=== PATIENT | male | born 1955 | race Caucasian/White ===

== ENCOUNTER 2017-11-24 14:57 | Inpatient (IN) | payer SELFPAY ==
[~2017-11-24] VITALS: Ht 172.7 cm; Wt 70.3 kg
[2017-11-24] MEDS ORDERED: ONDANSETRON 4 MG/2 ML VIAL IV ONE (15:15)
[2017-11-24 15:18] LABS: BASOPHILS % (AUTO) 0.2 % (0.0-2.0); EOSINOPHILS % (AUTO) 0.2 % (0.0-7.0); HEMATOCRIT 52.4 % (36.7-47.1); HEMOGLOBIN 17.6 g/dL (12.5-16.3); LYMPHOCYTES # (AUTO) 1.5 K/uL (20.0-40.0); LYMPHOCYTES % (AUTO) 11.9 % (20.5-51.5); MEAN CORPUSCULAR HEMOGLOBIN 31.1 uug (23.8-33.4); MEAN CORPUSCULAR HGB CONC 34 g/dL (32.5-36.3); MEAN CORPUSCULAR VOLUME 92.5 fL (73.0-96.2); MONOCYTES # (AUTO) 0.9 K/uL (2.0-10.0); MONOCYTES % (AUTO) 7.6 % (0.0-11.0); NEUTROPHILS # (AUTO) 9.8 K/uL (1.8-8.9); NEUTROPHILS % (AUTO) 80.1 % (38.5-71.5); PLATELET COUNT (AUTO) 270 K/uL (152-348); RED BLOOD CELL COUNT(AUTO) 5.66 MIL/uL (4.06-5.63); WHITE BLOOD COUNT (AUTO) 12.2 K/uL (3.6-10.2)
[2017-11-24] MEDS ORDERED: SWABABLE VALVE TRANSFER SET EA MC ONE (15:20)
[2017-11-24] MEDS ORDERED: IOHEXOL 300MG/ML 100 ML INFUS..BTL ONE (15:21)
[2017-11-24] MEDS ORDERED: IV NORMAL SALINE 250 ML IV ONE (15:21)
[2017-11-24] MEDS ORDERED: ONDANSETRON 4 MG/2 ML VIAL ONE (15:30)
[2017-11-24] MEDS ORDERED: DIATR MEGLU/DIATRIZOATE SODIUM 120 ML BOTTLE ONE (15:30)
[2017-11-24 15:33] LABS: CREATININE 1.3 mg/dL (0.6-1.3); POTASSIUM 4.2 mmol/L (3.5-5.1)
[2017-11-24 15:36] LABS: MAGNESIUM 2.2 mg/dL (1.8-2.4); PHOSPHOROUS 3.9 mg/dL (2.5-4.9)
[2017-11-24 15:38] LABS: BILIRUBIN,DIRECT 0.3 mg/dL (0.0-0.2); BILIRUBIN,TOTAL 1.3 mg/dL (0.2-1.0); TOTAL PROTEIN, SERUM 8.2 g/dL (6.4-8.2)
[2017-11-24] MEDS ORDERED: IV NORMAL SALINE 1000 ML BAG IV ONE (15:45)
[2017-11-24 18:23] VITALS: BP 127/77
[2017-11-24 20:00] VITALS: BP 124/84
[2017-11-24] MEDS ORDERED: HYDROMORPHONE 1 MG/1 ML DISP.SYRIN IV PRN (20:15)
[2017-11-24] MEDS ORDERED: ACETAMINOPHEN 650 MG SUPP.RECT RC PRN (20:15)
[2017-11-24] MEDS ORDERED: FLEET ENEMA 133 ML BOTTLE RC ONE (20:15)
[2017-11-24] MEDS ORDERED: ONDANSETRON 4 MG/2 ML VIAL IV PRN (20:15)
[2017-11-24] MEDS ORDERED: IV LACTATED RINGERS SOLUTION 1,000 ML BAG IV PRN (20:15)
[2017-11-24] MEDS: IV D5 1/2 NS 1000 ML 1,000 ML IV PRN (20:57)
[2017-11-24] MEDS ORDERED: PANTOPRAZOLE SODIUM 40 MG VIAL IV SCH (21:00)
[2017-11-24] MEDS: HYDROMORPHONE 2 MG/1 ML DISP.SYRIN IV PRN (21:12)
[2017-11-24] MEDS: ONDANSETRON 4 MG/2 ML VIAL IV PRN (21:16)
[2017-11-25 04:00] VITALS: BP 123/77
[2017-11-25 06:55] LABS: BASOPHILS # (AUTO) 0.1 K/uL (0.0-8.0); BASOPHILS % (AUTO) 0.6 % (0.0-2.0); EOSINOPHILS % (AUTO) 0.4 % (0.0-7.0); HEMATOCRIT 47.7 % (36.7-47.1); LYMPHOCYTES # (AUTO) 1.5 K/uL (20.0-40.0); LYMPHOCYTES % (AUTO) 14.8 % (20.5-51.5); MEAN CORPUSCULAR HEMOGLOBIN 30.9 uug (23.8-33.4); MEAN CORPUSCULAR HGB CONC 34 g/dL (32.5-36.3); MEAN CORPUSCULAR VOLUME 91.8 fL (73.0-96.2); MONOCYTES # (AUTO) 0.8 K/uL (2.0-10.0); MONOCYTES % (AUTO) 8.4 % (0.0-11.0); NEUTROPHILS # (AUTO) 7.6 K/uL (1.8-8.9); NEUTROPHILS % (AUTO) 75.8 % (38.5-71.5); PLATELET COUNT (AUTO) 226 K/uL (152-348); RED BLOOD CELL COUNT(AUTO) 5.19 MIL/uL (4.06-5.63)
[2017-11-25] MEDS ORDERED: MAGNESIUM CITRATE 296 ML BOTTLE PO ONE (07:00)
[2017-11-25 07:04] LABS: *BILIRUBIN,URIN NEGATIVE (NEGATIVE); *BLOOD, URINE NEGATIVE (NEGATIVE); *CLARITY,URINE CLEAR (CLEAR); *COLOR,URINE YELLOW (YELLOW); *KETONES,URINE 1+ (NEGATIVE); *PROTEIN,URINE 1+ (NEGATIVE); LEUKOCYTE ESTERASE ,URINE NEGATIVE (NEGATIVE); NITRITE, URINE NEGATIVE (NEGATIVE); UGLUCOSE NEGATIVE (NEGATIVE)
[2017-11-25 07:11] LABS: PHOSPHOROUS 4.2 mg/dL (2.5-4.9); POTASSIUM 3.8 mmol/L (3.5-5.1)
[2017-11-25 07:15] LABS: BACTERIA,URINE FEW /HPF (NONE SEEN); RBC,URINE NONE SEEN /HPF (0-3); SQUAMOUS EPITHELIAL CELL,UR FEW /HPF (NONE SEEN); WBC,URINE 0-3 /HPF (0-3)
[2017-11-25 08:00] VITALS: BP 107/55
[2017-11-25] MEDS ORDERED: GOLYTELY 4000 ML BOTTLE PO ONE (08:00)
[2017-11-25] MEDS ORDERED: FLEET ENEMA 133 ML BOTTLE RC ONE (08:00)
[2017-11-25] MEDS ORDERED: PANTOPRAZOLE SODIUM 40 MG VIAL IV SCH (09:00)
[2017-11-25] MEDS: IV D5 1/2 NS 1000 ML 1,000 ML IV PRN (09:08)
[2017-11-25] MEDS: ONDANSETRON 4 MG/2 ML VIAL IV PRN (11:09)
[2017-11-25] MEDS: HYDROMORPHONE 2 MG/1 ML DISP.SYRIN IV PRN ×2 (11:14→18:19)
[2017-11-25 11:49] VITALS: BP 132/88
[2017-11-25 15:09] VITALS: BP 126/83
[2017-11-25] MEDS: FLEET ENEMA 133 ML BOTTLE RC SCH ×3 (17:26→21:06)
[2017-11-25 20:00] VITALS: BP 131/84
[2017-11-25 20:44] LABS: BASOPHILS % (AUTO) 0.2 % (0.0-2.0); EOSINOPHILS % (AUTO) 0.1 % (0.0-7.0); HEMATOCRIT 47.4 % (36.7-47.1); HEMOGLOBIN 16.1 g/dL (12.5-16.3); LYMPHOCYTES # (AUTO) 1.1 K/uL (20.0-40.0); LYMPHOCYTES % (AUTO) 10.3 % (20.5-51.5); MEAN CORPUSCULAR HEMOGLOBIN 31.3 uug (23.8-33.4); MEAN CORPUSCULAR HGB CONC 34 g/dL (32.5-36.3); MEAN CORPUSCULAR VOLUME 92.4 fL (73.0-96.2); MONOCYTES # (AUTO) 0.8 K/uL (2.0-10.0); MONOCYTES % (AUTO) 8.1 % (0.0-11.0); NEUTROPHILS # (AUTO) 8.3 K/uL (1.8-8.9); NEUTROPHILS % (AUTO) 81.3 % (38.5-71.5); PLATELET COUNT (AUTO) 234 K/uL (152-348); RED BLOOD CELL COUNT(AUTO) 5.13 MIL/uL (4.06-5.63); WHITE BLOOD COUNT (AUTO) 10.2 K/uL (3.6-10.2)
[2017-11-25 20:55] LABS: BILIRUBIN,DIRECT 0.1 mg/dL (0.0-0.2); BILIRUBIN,TOTAL 0.8 mg/dL (0.2-1.0); CREATININE 1.1 mg/dL (0.6-1.3); POTASSIUM 3.5 mmol/L (3.5-5.1); TOTAL PROTEIN, SERUM 6.9 g/dL (6.4-8.2)
[2017-11-25 21:41] LABS: *OCCULT BLOOD STOOL POSITIVE (NEGATIVE)
[2017-11-26] VITALS (7 sets, daily range): BP systolic 104–124; BP diastolic 67–84
[2017-11-26] MEDS: HYDROMORPHONE 2 MG/1 ML DISP.SYRIN IV PRN ×4 (00:45→22:11)
[2017-11-26] MEDS: IV D5 1/2 NS 1000 ML 1,000 ML IV PRN (04:18)
[2017-11-26] MEDS ORDERED: FLEET ENEMA 133 ML BOTTLE RC ONE ×3 (05:16→06:30)
[2017-11-26] MEDS ORDERED: LIDOCAINE HCL 1% 20 ML VIAL ONE (07:01)
[2017-11-26] MEDS ORDERED: LIDOCAINE 1%-EPI 1:100,000 20 ML VIAL ONE (07:02)
[2017-11-26] MEDS ORDERED: EPINEPHRINE 1 MG/1 ML AMP ONE (07:02)
[2017-11-26] MEDS ORDERED: BACITRACIN ZINC OINT 15 GM TUBE ONE (07:03)
[2017-11-26] MEDS ORDERED: BACITRACIN 50,000 UNITS VIAL ONE (07:03)
[2017-11-26] MEDS ORDERED: ROCURONIUM BROMIDE 50 MG/5 ML VIAL ONE ×2 (07:36)
[2017-11-26] MEDS ORDERED: SUCCINYLCHOLINE CHLORIDE 200 MG/10 ML VIAL ONE (07:36)
[2017-11-26] MEDS ORDERED: FENTANYL CITRATE 100 MCG/2 ML AMPUL ONE (07:36)
[2017-11-26] MEDS ORDERED: BUPIVACAINE/EPI PF 0.25% 30 ML VIAL ONE (07:55)
[2017-11-26] MEDS ORDERED: LEVOFLOXACIN 500 MG/D5W 500 MG in PREMIXED 1 EACH IV ONE (08:00)
[2017-11-26] MEDS ORDERED: METRONIDAZOLE 500 MG/NS 100ML 500 MG in PREMIXED 1 EACH IV ONE (08:00)
[2017-11-26] MEDS ORDERED: PROPOFOL 200 MG/20 ML BOTTLE IV ONE (08:01)
[2017-11-26] MEDS ORDERED: IV NORMAL SALINE 1000 ML BAG IV ONE (08:01)
[2017-11-26] MEDS ORDERED: LIDOCAINE-MPF 2% 5 ML VIAL MC ONE (08:01)
[2017-11-26] MEDS ORDERED: DEXAMETHASONE SOD PHOSPHATE 4 MG INJ IV ONE (08:01)
[2017-11-26] MEDS ORDERED: KETOROLAC TROMETHAMINE 30 MG INJ IM ONE (08:07)
[2017-11-26] MEDS ORDERED: DESFLURANE ANESTHESIA GAS 240 ML BOTTLE ONE (08:47)
[2017-11-26] MEDS ORDERED: SEVOFLURANE 250 ML BOTTLE ONE (08:47)
[2017-11-26] MEDS ORDERED: ONDANSETRON 4 MG/2 ML VIAL IV PRN ×2 (14:00→17:00)
[2017-11-26] MEDS: METRONIDAZOLE 500 MG/NS 100ML 500 MG in PREMIXED 1 EACH IV SCH (17:18)
[2017-11-26] MEDS: IV NS 1000 ML 1,000 ML IV PRN (17:20)
[2017-11-26] MEDS: PANTOPRAZOLE SODIUM 40 MG VIAL IV SCH (20:31)
[2017-11-26] MEDS: SUCRALFATE 1 G/10 ML LIQUID UDC PO SCH (20:31)
[2017-11-27] VITALS (11 sets, daily range): BP systolic 88–112; BP diastolic 55–73
[2017-11-27] MEDS: SUCRALFATE 1 G/10 ML LIQUID UDC PO SCH ×5 (00:03→20:47)
[2017-11-27] MEDS: IV NS 1000 ML 1,000 ML IV PRN (00:03)
[2017-11-27] MEDS ORDERED: METRONIDAZOLE 500 MG/NS 100ML 100 ML IV ONE (00:44)
[2017-11-27] MEDS: METRONIDAZOLE 500 MG/NS 100ML 500 MG in PREMIXED 1 EACH IV SCH (00:46)
[2017-11-27] MEDS: HYDROMORPHONE 2 MG/1 ML DISP.SYRIN IV PRN ×3 (02:09→17:45)
[2017-11-27] MEDS ORDERED: GABAPENTIN 300 MG CAPSULE PO SCH (05:00)
[2017-11-27] MEDS ORDERED: IBUPROFEN 800 MG TABLET PO SCH ×2 (05:00→07:30)
[2017-11-27] MEDS ORDERED: IV NORMAL SALINE 500 ML IV ONE (05:00)
[2017-11-27] MEDS: ACETAMINOPHEN 325 MG TABLET PO SCH ×3 (05:20→20:47)
[2017-11-27] MEDS: IV LACTATED RINGERS SOLUTION 1,000 ML IV SCH ×2 (06:17→12:41)
[2017-11-27 06:38] LABS: BASOPHILS % (AUTO) 0.1 % (0.0-2.0); HEMATOCRIT 45.6 % (36.7-47.1); HEMOGLOBIN 15.2 g/dL (12.5-16.3); LYMPHOCYTES # (AUTO) 0.7 K/uL (20.0-40.0); LYMPHOCYTES % (AUTO) 5.3 % (20.5-51.5); MEAN CORPUSCULAR HEMOGLOBIN 31.6 uug (23.8-33.4); MEAN CORPUSCULAR HGB CONC 33 g/dL (32.5-36.3); MEAN CORPUSCULAR VOLUME 94.8 fL (73.0-96.2); MONOCYTES # (AUTO) 0.6 K/uL (2.0-10.0); MONOCYTES % (AUTO) 4.7 % (0.0-11.0); NEUTROPHILS # (AUTO) 11.3 K/uL (1.8-8.9); NEUTROPHILS % (AUTO) 89.9 % (38.5-71.5); PLATELET COUNT (AUTO) 199 K/uL (152-348); RED BLOOD CELL COUNT(AUTO) 4.81 MIL/uL (4.06-5.63); WHITE BLOOD COUNT (AUTO) 12.6 K/uL (3.6-10.2)
[2017-11-27 06:55] LABS: BILIRUBIN,TOTAL 1.1 mg/dL (0.2-1.0); CREATININE 1.5 mg/dL (0.6-1.3); MAGNESIUM 2.1 mg/dL (1.8-2.4); POTASSIUM 4.7 mmol/L (3.5-5.1); TOTAL PROTEIN, SERUM 5.2 g/dL (6.4-8.2)
[2017-11-27] MEDS ORDERED: LEVOFLOXACIN 500 MG/D5W 500 MG in PREMIXED 1 EACH IV SCH (09:00)
[2017-11-27] MEDS: PANTOPRAZOLE SODIUM 40 MG VIAL IV SCH ×2 (09:03→20:47)
[2017-11-27] MEDS ORDERED: AMIODARONE HCL IV 150 MG in IV DEXTROSE 5% 100 ML IV ONE (11:45)
[2017-11-27] MEDS: AMIODARONE HCL IV 900 MG in IV DEXTROSE 5% 482 ML IV PRN ×2 (12:52→19:01)
[2017-11-27] MEDS: PIPERACILLIN/TAZOBACTAM/D5W 50 ML IV SCH ×3 (12:54→23:34)
[2017-11-27] MEDS: GABAPENTIN 300 MG CAPSULE PO SCH ×2 (13:31→21:18)
[2017-11-27] MEDS: IBUPROFEN 800 MG TABLET PO SCH ×2 (13:31→21:18)
[2017-11-27] MEDS ORDERED: IV LACTATED RINGERS SOLUTION 1,000 ML IV SCH (16:00)
[2017-11-27] MEDS: DIGOXIN 500 MCG/2 ML AMP IV SCH ×2 (16:18→20:47)
[2017-11-27] MEDS ORDERED: SUCRALFATE 1 G/10 ML LIQUID UDC PO SCH ×2 (19:30)
[2017-11-27] MEDS ORDERED: IV LACTATED RINGERS SOLUTION 1,000 ML IV PRN (20:45)
[2017-11-27] MEDS ORDERED: FUROSEMIDE 20 MG/2 ML VIAL IV ONE (22:30)
[2017-11-28] VITALS: BP 92/53
[2017-11-28] MEDS: IV 1/2NS 1000 ML 1,000 ML IV PRN ×3 (00:13→13:32)
[2017-11-28 04:00] VITALS: BP 89/50
[2017-11-28] MEDS: GABAPENTIN 300 MG CAPSULE PO SCH ×3 (05:20→22:09)
[2017-11-28] MEDS: IBUPROFEN 800 MG TABLET PO SCH ×3 (05:20→22:09)
[2017-11-28] MEDS: ACETAMINOPHEN 325 MG TABLET PO SCH ×3 (05:20→21:02)
[2017-11-28] MEDS: PIPERACILLIN/TAZOBACTAM/D5W 50 ML IV SCH (05:21)
[2017-11-28 06:26] LABS: BASOPHILS % (AUTO) 0.2 % (0.0-2.0); EOSINOPHILS # (AUTO) 0.1 K/uL (0.0-0.7); EOSINOPHILS % (AUTO) 0.9 % (0.0-7.0); HEMATOCRIT 41.1 % (36.7-47.1); HEMOGLOBIN 14.1 g/dL (12.5-16.3); LYMPHOCYTES # (AUTO) 0.6 K/uL (20.0-40.0); LYMPHOCYTES % (AUTO) 7.9 % (20.5-51.5); MEAN CORPUSCULAR HEMOGLOBIN 31.8 uug (23.8-33.4); MEAN CORPUSCULAR HGB CONC 34 g/dL (32.5-36.3); MEAN CORPUSCULAR VOLUME 92.9 fL (73.0-96.2); MONOCYTES # (AUTO) 0.4 K/uL (2.0-10.0); MONOCYTES % (AUTO) 4.4 % (0.0-11.0); NEUTROPHILS # (AUTO) 7.1 K/uL (1.8-8.9); NEUTROPHILS % (AUTO) 86.6 % (38.5-71.5); PLATELET COUNT (AUTO) 158 K/uL (152-348); RED BLOOD CELL COUNT(AUTO) 4.42 MIL/uL (4.06-5.63); WHITE BLOOD COUNT (AUTO) 8.2 K/uL (3.6-10.2)
[2017-11-28 06:35] LABS: CREATININE 1.4 mg/dL (0.6-1.3); MAGNESIUM 1.8 mg/dL (1.8-2.4); PHOSPHOROUS 1.9 mg/dL (2.5-4.9); POTASSIUM 3.8 mmol/L (3.5-5.1)
[2017-11-28 07:44] VITALS: BP 92/50
[2017-11-28] MEDS: SUCRALFATE 1 G/10 ML LIQUID UDC PO SCH ×4 (08:04→20:58)
[2017-11-28] MEDS: PANTOPRAZOLE SODIUM 40 MG VIAL IV SCH ×2 (08:04→20:58)
[2017-11-28] MEDS ORDERED: diphenhydrAMINE 50 MG CAPSULE PO PRN (10:45)
[2017-11-28 11:45] VITALS: BP 90/55
[2017-11-28] MEDS ORDERED: MAGNESIUM SULFATE/D5W 100 ML IV SCH (13:30)
[2017-11-28] MEDS ORDERED: DOSING BY PHARMACY-MD TO SPECIFY MED/ROUTE XX PRN (14:15)
[2017-11-28] MEDS ORDERED: MEROPENEM 1 G in IV NORMAL SALINE 100 ML IV SCH (15:00)
[2017-11-28] MEDS: MEROPENEM 1 G in IV NORMAL SALINE 100 ML IV SCH ×2 (15:03→22:09)
[2017-11-28 15:07] VITALS: BP 92/59
[2017-11-28] MEDS ORDERED: NEUTRA PHOS PACKET PO ONE (15:15)
[2017-11-28 20:00] VITALS: BP 95/59
[2017-11-28] MEDS: AMIODARONE HCL 200 MG TABLET PO SCH (21:01)
[2017-11-29] VITALS: BP 95/62
[2017-11-29] MEDS: FUROSEMIDE 20 MG/2 ML VIAL IV SCH ×2 (00:10→08:06)
[2017-11-29 04:00] VITALS: BP 86/42
[2017-11-29] MEDS: IBUPROFEN 800 MG TABLET PO SCH (05:25)
[2017-11-29] MEDS: GABAPENTIN 300 MG CAPSULE PO SCH ×3 (05:25→21:40)
[2017-11-29] MEDS: ACETAMINOPHEN 325 MG TABLET PO SCH ×3 (05:25→21:40)
[2017-11-29] MEDS: MEROPENEM 1 G in IV NORMAL SALINE 100 ML IV SCH ×3 (06:07→23:18)
[2017-11-29 06:31] LABS: BASOPHILS % (AUTO) 0.2 % (0.0-2.0); EOSINOPHILS # (AUTO) 0.2 K/uL (0.0-0.7); EOSINOPHILS % (AUTO) 1.9 % (0.0-7.0); HEMATOCRIT 37.9 % (36.7-47.1); LYMPHOCYTES # (AUTO) 0.4 K/uL (20.0-40.0); MEAN CORPUSCULAR HEMOGLOBIN 31.7 uug (23.8-33.4); MEAN CORPUSCULAR HGB CONC 34 g/dL (32.5-36.3); MEAN CORPUSCULAR VOLUME 92.6 fL (73.0-96.2); MONOCYTES # (AUTO) 0.4 K/uL (2.0-10.0); MONOCYTES % (AUTO) 3.5 % (0.0-11.0); NEUTROPHILS # (AUTO) 11.3 K/uL (1.8-8.9); NEUTROPHILS % (AUTO) 91.4 % (38.5-71.5); PLATELET COUNT (AUTO) 143 K/uL (152-348); RED BLOOD CELL COUNT(AUTO) 4.09 MIL/uL (4.06-5.63); WHITE BLOOD COUNT (AUTO) 12.3 K/uL (3.6-10.2)
[2017-11-29] MEDS: SUCRALFATE 1 G/10 ML LIQUID UDC PO SCH ×4 (06:38→21:39)
[2017-11-29 06:49] LABS: BILIRUBIN,TOTAL 0.4 mg/dL (0.2-1.0); CREATININE 1.4 mg/dL (0.6-1.3); MAGNESIUM 1.9 mg/dL (1.8-2.4); PHOSPHOROUS 1.3 mg/dL (2.5-4.9); TOTAL PROTEIN, SERUM 4.2 g/dL (6.4-8.2)
[2017-11-29] MEDS: PANTOPRAZOLE SODIUM 40 MG VIAL IV SCH ×2 (08:05→21:40)
[2017-11-29] MEDS: AMIODARONE HCL 200 MG TABLET PO SCH ×2 (08:06→21:40)
[2017-11-29] MEDS ORDERED: FUROSEMIDE 20 MG/2 ML VIAL IV ONE (11:30)
[2017-11-29] MEDS ORDERED: ALBUMIN HUMAN 25% 100 ML IV ONE (11:30)
[2017-11-29 11:43] VITALS: BP 90/62
[2017-11-29] MEDS: POTASSIUM PHOSPHATE MM 5 MMOL in IV DEXTROSE 5% 100 ML IV SCH ×4 (13:32→21:39)
[2017-11-29] MEDS: POTASSIUM CHLORIDE 20 MEQ in IV D5/ 0.9% NACL 1,000 ML IV PRN (13:50)
[2017-11-29 15:17] VITALS: BP 100/59
[2017-11-29 20:00] VITALS: BP 106/63
[2017-11-29] MEDS ORDERED: MAGNESIUM SULFATE/D5W 100 ML IV ONE (21:30)
[2017-11-30] VITALS: BP 116/66
[2017-11-30 04:00] VITALS: BP 101/67
[2017-11-30 06:05] LABS: *CLARITY,URINE CLEAR (CLEAR); *COLOR,URINE DARK YELLOW (YELLOW); *PROTEIN,URINE NEGATIVE (NEGATIVE); UGLUCOSE NEGATIVE (NEGATIVE)
[2017-11-30 06:06] LABS: *BILIRUBIN,URIN NEGATIVE (NEGATIVE); *KETONES,URINE NEGATIVE (NEGATIVE); *UROBILINOGEN,URINE 0.2 E.U./dl (NORMAL); NITRITE, URINE NEGATIVE (NEGATIVE)
[2017-11-30 06:07] LABS: *BLOOD, URINE TRACE (NEGATIVE)
[2017-11-30 06:16] LABS: LEUKOCYTE ESTERASE ,URINE TRACE (NEGATIVE)
[2017-11-30 06:17] LABS: BACTERIA,URINE NONE SEEN /HPF (NONE SEEN); MUCUS,URINE MANY /LPF (0-FEW); SQUAMOUS EPITHELIAL CELL,UR FEW /HPF (NONE SEEN)
[2017-11-30] MEDS: ACETAMINOPHEN 325 MG TABLET PO SCH ×3 (06:39→20:31)
[2017-11-30] MEDS: MEROPENEM 1 G in IV NORMAL SALINE 100 ML IV SCH ×3 (06:39→22:25)
[2017-11-30] MEDS: SUCRALFATE 1 G/10 ML LIQUID UDC PO SCH ×4 (06:39→20:32)
[2017-11-30] MEDS: GABAPENTIN 300 MG CAPSULE PO SCH ×3 (06:39→22:25)
[2017-11-30 08:12] LABS: BASOPHILS % (AUTO) 0.2 % (0.0-2.0); EOSINOPHILS # (AUTO) 0.2 K/uL (0.0-0.7); EOSINOPHILS % (AUTO) 1.8 % (0.0-7.0); HEMOGLOBIN 12.3 g/dL (12.5-16.3); LYMPHOCYTES # (AUTO) 0.5 K/uL (20.0-40.0); LYMPHOCYTES % (AUTO) 4.1 % (20.5-51.5); MEAN CORPUSCULAR HEMOGLOBIN 32.1 uug (23.8-33.4); MEAN CORPUSCULAR HGB CONC 35 g/dL (32.5-36.3); MEAN CORPUSCULAR VOLUME 91.6 fL (73.0-96.2); MONOCYTES # (AUTO) 0.7 K/uL (2.0-10.0); MONOCYTES % (AUTO) 5.4 % (0.0-11.0); NEUTROPHILS # (AUTO) 11.5 K/uL (1.8-8.9); NEUTROPHILS % (AUTO) 88.5 % (38.5-71.5); RED BLOOD CELL COUNT(AUTO) 3.82 MIL/uL (4.06-5.63)
[2017-11-30 08:30] LABS: PLATELET COUNT (AUTO) 188 K/uL (152-348)
[2017-11-30] MEDS: PANTOPRAZOLE SODIUM 40 MG VIAL IV SCH ×2 (08:35→20:32)
[2017-11-30] MEDS: AMIODARONE HCL 200 MG TABLET PO SCH ×2 (08:36→20:32)
[2017-11-30 08:51] LABS: BILIRUBIN,TOTAL 0.6 mg/dL (0.2-1.0); CREATININE 1.1 mg/dL (0.6-1.3); PHOSPHOROUS 1.4 mg/dL (2.5-4.9); POTASSIUM 2.9 mmol/L (3.5-5.1); TOTAL PROTEIN, SERUM 4.9 g/dL (6.4-8.2)
[2017-11-30] MEDS ORDERED: POTASSIUM CHLORIDE 20 MEQ TAB.PRT.SR PO ONE (10:15)
[2017-11-30] MEDS ORDERED: FUROSEMIDE 20 MG/2 ML VIAL IV ONE (10:45)
[2017-11-30] MEDS: POTASSIUM PHOSPHATE MM 5 MMOL in IV DEXTROSE 5% 100 ML IV SCH ×4 (11:10→18:23)
[2017-11-30] MEDS: PROTEIN SUPPLEMENT (PROSTAT) 30 ML LIQUID PO SCH ×2 (11:11→17:10)
[2017-11-30 11:36] VITALS: BP 117/69
[2017-11-30 15:11] VITALS: BP 108/64
[2017-11-30] MEDS: POTASSIUM CHLORIDE 20 MEQ in IV D5/ 0.9% NACL 1,000 ML IV PRN (16:53)
[2017-11-30 20:03] VITALS: BP 119/71
[2017-12-01 00:31] VITALS: BP 99/57
[2017-12-01 04:15] VITALS: BP 125/66
[2017-12-01] MEDS: MEROPENEM 1 G in IV NORMAL SALINE 100 ML IV SCH ×2 (06:05→15:00)
[2017-12-01] MEDS: ACETAMINOPHEN 325 MG TABLET PO SCH ×2 (06:05→12:03)
[2017-12-01] MEDS: GABAPENTIN 300 MG CAPSULE PO SCH ×2 (06:06→13:34)
[2017-12-01 06:22] LABS: BASOPHILS % (AUTO) 0.2 % (0.0-2.0); EOSINOPHILS # (AUTO) 0.3 K/uL (0.0-0.7); EOSINOPHILS % (AUTO) 2.7 % (0.0-7.0); HEMATOCRIT 36.7 % (36.7-47.1); HEMOGLOBIN 12.7 g/dL (12.5-16.3); LYMPHOCYTES # (AUTO) 0.7 K/uL (20.0-40.0); LYMPHOCYTES % (AUTO) 7.2 % (20.5-51.5); MEAN CORPUSCULAR HEMOGLOBIN 31.3 uug (23.8-33.4); MEAN CORPUSCULAR HGB CONC 35 g/dL (32.5-36.3); MEAN CORPUSCULAR VOLUME 90.6 fL (73.0-96.2); MONOCYTES # (AUTO) 0.8 K/uL (2.0-10.0); MONOCYTES % (AUTO) 7.7 % (0.0-11.0); NEUTROPHILS # (AUTO) 8.4 K/uL (1.8-8.9); NEUTROPHILS % (AUTO) 82.2 % (38.5-71.5); PLATELET COUNT (AUTO) 213 K/uL (152-348); RED BLOOD CELL COUNT(AUTO) 4.05 MIL/uL (4.06-5.63); WHITE BLOOD COUNT (AUTO) 10.2 K/uL (3.6-10.2)
[2017-12-01 06:29] LABS: BILIRUBIN,TOTAL 0.6 mg/dL (0.2-1.0); MAGNESIUM 1.7 mg/dL (1.8-2.4); PHOSPHOROUS 1.9 mg/dL (2.5-4.9); POTASSIUM 3.2 mmol/L (3.5-5.1); TOTAL PROTEIN, SERUM 5.2 g/dL (6.4-8.2)
[2017-12-01] MEDS: SUCRALFATE 1 G/10 ML LIQUID UDC PO SCH ×3 (06:32→16:50)
[2017-12-01] MEDS: PROTEIN SUPPLEMENT (PROSTAT) 30 ML LIQUID PO SCH ×3 (08:12→16:50)
[2017-12-01] MEDS: PANTOPRAZOLE SODIUM 40 MG VIAL IV SCH (08:38)
[2017-12-01] MEDS: AMIODARONE HCL 200 MG TABLET PO SCH (08:38)
[2017-12-01 11:38] VITALS: BP 114/75
[2017-12-01] MEDS ORDERED: MAGNESIUM OXIDE 400 MG TABLET PO ONE (12:15)
[2017-12-01] MEDS ORDERED: POTASSIUM CHLORIDE 20 MEQ TAB.PRT.SR PO ONE (13:00)
[2017-12-01] MEDS ORDERED: NEUTRA PHOS PACKET PO ONE (13:00)
[2017-12-01 16:07] VITALS: BP 124/73
[2017-12-01] MEDS ORDERED: AMIODARONE HCL 200 MG TABLET PO SCH (21:00)
== END 2017-12-01 18:24 | disposition home or self-care (01) | DRG 329 ==
LOC: ER 14:58 → MED 17:31 → TELE-TD 11-26 14:07 → MED 11-28 17:25 → TELE 11-28 19:45 → MED 12-01 14:20
PROVIDERS: ADMIT Internal Medicine; ATTEND Internal Medicine
PROC: 0DB68ZX Excision of Stomach, Via Natural or Artificial Opening Endoscopic, Diagnostic (ICD-10-PCS; principal; 2017-11-26 07:46)
PROC: 0DJD8ZZ Inspection of Lower Intestinal Tract, Via Natural or Artificial Opening Endoscopic (ICD-10-PCS; principal; 2017-11-26 07:46)
PROC: 0DB38ZX Excision of Lower Esophagus, Via Natural or Artificial Opening Endoscopic, Diagnostic (ICD-10-PCS; principal; 2017-11-26 07:46)
PROC: 0FBG0ZX Excision of Pancreas, Open Approach, Diagnostic (ICD-10-PCS; principal; 2017-11-26 07:46)
PROC: 0DTF0ZZ Resection of Right Large Intestine, Open Approach (ICD-10-PCS; principal; 2017-11-26 07:46)
PROC: 30233J1 Transfusion of Nonautologous Serum Albumin into Peripheral Vein, Percutaneous Approach (ICD-10-PCS; 2017-11-29)
DX: C18.3 Malignant neoplasm of hepatic flexure (principal); N17.0 Acute kidney failure with tubular necrosis; E43 Unspecified severe protein-calorie malnutrition; D68.59 Other primary thrombophilia; K56.609 Unspecified intestinal obstruction, unspecified as to partial versus complete obstruction; C18.2 Malignant neoplasm of ascending colon; C18.4 Malignant neoplasm of transverse colon; C77.2 Secondary and unspecified malignant neoplasm of intra-abdominal lymph nodes; K64.3 Fourth degree hemorrhoids; K22.70 Barrett's esophagus without dysplasia; E86.0 Dehydration; I48.0 Paroxysmal atrial fibrillation; K57.30 Diverticulosis of large intestine without perforation or abscess without bleeding; Z68.23 Body mass index [BMI] 23.0-23.9, adult; R60.1 Generalized edema; N40.0 Benign prostatic hyperplasia without lower urinary tract symptoms; Z80.0 Family history of malignant neoplasm of digestive organs; E83.51 Hypocalcemia; E83.42 Hypomagnesemia; E87.6 Hypokalemia; K29.70 Gastritis, unspecified, without bleeding; K80.20 Calculus of gallbladder without cholecystitis without obstruction; Z80.42 Family history of malignant neoplasm of prostate; L27.0 Generalized skin eruption due to drugs and medicaments taken internally; T36.0X5A Adverse effect of penicillins, initial encounter; Y92.230 Patient room in hospital as the place of occurrence of the external cause
CPT/HCPCS: 36415; 71045; 74018; 82378; 83550; 83605; 83690; 83735; 84100; 84153; 85025; 85610; 85730; 88342; 93005; 93307; 97116; 97530; A4217; A4649; A4663; C9113; J0171; J0282; J0330; J1100; J1160; J1170; J1885; J1940; J1956; J2185; J2405; J2543; J3010; J3475; J3480; J3490; J7030; J7040; J7042; J7050; J7060; J7120; P9047; Q9963; Q9967